=== PATIENT | female | born 1980 | race American Indian/Alaskan Native ===

== ENCOUNTER 2019-01-18 18:18 | Emergency (ER) | payer BC ==
--- NOTE | 2019-01-18 18:48 | Emergency Department Report ---
Blank Doc - Documentation Documentation: This is a 38-year-old female that presents with vaginal discharge and pelvic p ain. This initial assessment/diagnostic orders/clinical plan/treatment(s) is/are subject to change based on patient's health status, clinical progression and re- assessment by fellow clinical providers in the ED. Further treatment and workup at subsequent clinical providers discretion. Patient/guardians urged not to elope from the ED as their condition may be serious if not clinically assessed and managed. Initial orders include: 1- Patient sent to [facility] for further evaluation and treatment 2- UA 3- wet prep 4- pelvic exam to be done
[2019-01-18 19:24] LABS: Bilirubin,Urine NEG (Negative); Blood,Urine NEG (Negative); Color,Urine Yellow (Yellow); Mucus,Urine FEW /HPF; Protein,Urine <15 mg/dL mg/dL (Negative)
[2019-01-18 19:26] LABS: HCG Qualitative,Urine Negative (Negative)
[2019-01-18] MEDS ORDERED: ZOFRAN IV STA (22:52)
[2019-01-18] MEDS ORDERED: NACL 0.9% 1000 ML 1,000 ML IV ONE (22:52)
[2019-01-18] MEDS ORDERED: TORADOL IV STA (22:52)
[2019-01-18] MEDS ORDERED: TORADOL ONE ×2 (23:15→23:17)
[2019-01-18 23:17] LABS: Basophils # (Auto) 0.1 K/mm3 (0.0-0.1); Basophils % (Auto) 0.7 % (0.0-1.8); Eosinophils # (Auto) 0.1 K/mm3 (0.0-0.4); Eosinophils % (Auto) 1.1 % (0.0-4.3); Hematocrit 33.3 % (30.3-42.9); Hemoglobin 11.4 gm/dl (10.1-14.3); Lymphocytes # (Auto) 3.1 K/mm3 (1.2-5.4); Lymphocytes % (Auto) 30.7 % (13.4-35.0); Mean Corpuscular HGB Conc 34 % (30-34); Mean Corpuscular Volume 90 fl (79-97); Monocytes # (Auto) 0.5 K/mm3 (0.0-0.8); Monocytes % (Auto) 4.9 % (0.0-7.3); Platelet Count 275 K/mm3 (140-440); Red Blood Count 3.69 M/mm3 (3.65-5.03); Red Cell Distribution Width 14.4 % (13.2-15.2)
[2019-01-18 23:47] LABS: Alanine Aminotransferase 11 units/L (7-56); Albumin 3.6 g/dL (3.9-5); BUN/Creatinine Ratio 9; Blood Urea Nitrogen 8 mg/dL (7-17); Calcium 8.5 mg/dL (8.4-10.2); Hemolysis Index 6
--- NOTE | 2019-01-18 23:54 | Ultrasound Report ---
US pelvic complete, US transvaginal INDICATION / CLINICAL INFORMATION: rlq and suprapubic pain. COMPARISON: None available. FINDINGS: The uterus measures 9.2 cm and is slightly anteverted. Myometrial echogenicity is normal. Endometrial stripe thickness is 11 mm. The ovaries are demonstrated bilaterally with normal Doppler blood flow. The right ovary measures 2.5 cm x 2.5 cm with a 1.5 cm simple cyst. The left ovary measures 3.6 cm x 3.4 cm and has a 2 cm simple cyst. No fluid collections are identified in the cul-de-sac. IMPRESSION: 1. Small bilateral ovarian cysts. Signer Name: Nilay Lee MD Signed: 01/18/2019 11:50 PM Workstation Name: [id number]
--- NOTE | 2019-01-19 04:25 | Cat Scan Report ---
CT abdomen pelvis w con INDICATION / CLINICAL INFORMATION: Lower ABD Pain. TECHNIQUE: All CT scans at this location are performed using CT dose reduction for ALARA by means of automated e xposure control. COMPARISON: None available. FINDINGS: Limited lower thoracic images are normal. ABDOMEN: Gallbladder is normal in appearance Multiple small benign low-density areas are incidentally noted in the liver. The spleen, pancreas and kidneys are normal. No mesenteric or retroperitoneal adenopathy. No small bowel dilatation. Pelvis: The appendix is normal. No dependent fluid collections or inflammatory changes are seen in the pelvis. Bilateral ovarian cysts are identified No skeletal abnormality. IMPRESSION: 1. Small bilateral ovarian cysts. Signer Name: Nilay Lee MD Signed: 01/19/2019 4:21 AM Workstation Name: [id number]
--- NOTE | 2019-01-19 04:56 | Emergency Department Report ---
ED Abdominal Pain HPI - General Chief Complaint: Abdominal Pain Stated Complaint: SHARP PAINS/ABD SWELLING/SWEATS Time Seen by Provider: 01/18/19 18:46 Source: patient Mode of arrival: Ambulatory Limitations: No Limitations - History of Present Illness Initial Comments: 38-year-old -Thai female with past medical history of stomach ulcers, since emergency department complaining of abdominal pain to the right lower quadrant radiating across her suprapubic associated with some constipation and pressure. She felt feverish yesterday reports no vaginal bleeding, no hematuria, hematemesis or hematochezia. States she has some sweats off and on one of her abdomen evaluated. There is something wrong there is no palliative or provocative factors noted. MD Complaint: abdominal pain Location: RLQ Radiation: RUQ Migration to: RUQ Severity: mild, moderate Severity scale (0 -10): 2 Quality: dull Consistency: constant Improves With: nothing Worsens With: nothing Associated Symptoms: denies: diarrhea, constipation, hematemesis, hematochezia, hematuria, anorexia, syncope - Related Data Previous Rx's Medication Instructions Recorded Last Taken Type HYDROcodone/APAP 5-325 [[place] 1 each PO Q6HR PRN #60 tablet 09/24/13 Unknown Rx 5/325 mg] Ferrous Sulfate [Feosol 325mg] 325 mg PO TID #90 tablet 10/04/13 Unknown Rx HYDROcodone/APAP 5-325 [[place] 1 each PO Q6HR PRN #15 tablet 10/04/13 Unknown Rx 5/325 mg] Hyoscyamine Subl [Levsin Sl] 0.125 mg SL Q4HR PRN #16 tablet 01/19/19 Unknown Rx Ketorolac [Toradol] 10 mg PO Q6H PRN #14 tablet 01/19/19 Unknown Rx Omeprazole 40 mg PO DAILY #10 capsule. 01/19/19 Unknown Rx Allergies Allergy/AdvReac Type Severity Reaction Status Date / Time No Known Allergies Allergy Verified 09/24/13 07:06 ED Review of Systems ROS: Stated complaint: SHARP PAINS/ABD SWELLING/SWEATS Other details as noted in HPI Comment: All other systems reviewed and negative ED Past Medical Hx - Past Medical History Previous Medical History?: Yes Hx Hypertension: Yes Hx Diabetes: Yes (GESTATIONAL IN 2007) Hx GERD: Yes Additional medical history: sarcoidosis. stomach ulcers,fibrocystic breast, GI polyp,colonoscopy 07/2018 - Surgical History Past Surgical History?: Yes Additional Surgical History: C section, tubiligation,tummy tuck 2011 - Social History Smoking Status: Unknown if ever smoked Substance Use Type: None - Medications Home Medications: Home Medications Medication Instructions Recorded Confirmed Last Taken Type HYDROcodone/APAP 5-325 [[place] 1 each PO Q6HR PRN #60 tablet 09/24/13 10/04/13 Unknown Rx 5/325 mg] Ferrous Sulfate [Feosol 325mg] 325 mg PO TID #90 tablet 10/04/13 Unknown Rx HYDROcodone/APAP 5-325 [[place] 1 each PO Q6HR PRN #15 tablet 10/04/13 Unknown Rx 5/325 mg] Hyoscyamine Subl [Levsin Sl] 0.125 mg SL Q4HR PRN #16 tablet 01/19/19 Unknown Rx Ketorolac [Toradol] 10 mg PO Q6H PRN #14 tablet 01/19/19 Unknown Rx Omeprazole 40 mg PO DAILY #10 capsule. 01/19/19 Unknown Rx ED Physical Exam - General Limitations: No Limitations General appearance: alert, in no apparent distress - Head Head exam: Present: atraumatic, normocephalic - Eye Eye exam: Present: normal appearance, PERRL, EOMI Pupils: Present: normal accommodation - ENT ENT exam: Present: normal exam, normal orophraynx, mucous membranes moist - Neck Neck exam: Present: normal inspection - Respiratory Respiratory exam: Present: normal lung sounds bilaterally. Absent: respiratory distress - Cardiovascular Cardiovascular Exam: Present: regular rate, normal rhythm. Absent: systolic murmur, diastolic murmur, rubs, gallop - GI/Abdominal GI/Abdominal exam: Present: soft, tenderness, normal bowel sounds, other (neck: Soft, Tylenol, no Rovsing, no). Absent: hyperactive bowel sounds, hypoactive bowel sounds - Extremities Exam Extremities exam: Present: normal inspection, full ROM - Back Exam Back exam: Present: normal inspection. Absent: CVA tenderness (R), CVA tenderness (L) - Neurological Exam Neurological exam: Present: alert, oriented X3, CN II-XII intact, normal gait. Absent: abnormal gait, motor sensory deficit - Psychiatric Psychiatric exam: Present: normal affect, normal mood - Skin Skin exam: Present: warm, dry, intact, normal color. Absent: rash ED Course Vital Signs 01/18/19 01/18/19 01/19/19 18:30 23:50 02:06 Temperature 98.1 F 97.7 F Pulse Rate 88 80 Respiratory 18 16 14 Rate Blood Pressure 140/92 Blood Pressure 136/89 [Right] O2 Sat by Pulse 98 98 Oximetry ED Medical Decision Making - Lab Data Result diagrams: 01/18/19 23:02 01/18/19 23:02 - Medical Decision Making 38-year-old female has a history of gastric ulcers and follow-up with gastroenterology on February 04. She also has history of sarcoidosis as well complaining of recurrent abdominal pain and constipation. CT scan showed bilateral ovarian cyst which also was was found on ultrasound. Laboratory data did not show any infectious processes or any significant electrolyte deficiencies. Pain did improve during hospital stay as well. Last patient's is to follow up with [facility]'s days to resolve Critical care attestation.: If time is entered above; I have spent that time in minutes in the direct care of this critically ill patient, excluding procedure time. ED Disposition Clinical Impression: Ovarian cyst, Constipation, Abdominal pain Disposition: DC-01 TO HOME OR SELFCARE Is pt being admited?: No Does the pt Need Aspirin: No Condition: Stable Instructions: Abdominal Pain (ED) Prescriptions: Ketorolac [Toradol] 10 mg PO Q6H PRN #14 tablet PRN Reason: Pain Referrals: KYLE CURIEL MD [Primary Care Provider] - 3-5 Days
[2019-01-19 05:16] VITALS: BP 146/88
== END 2019-01-19 05:17 | disposition home or self-care (01) ==
LOC: ED 18:18
DX: N83.202 Unspecified ovarian cyst, left side (principal); N83.201 Unspecified ovarian cyst, right side; R10.31 Right lower quadrant pain; K59.00 Constipation, unspecified; I10 Essential (primary) hypertension; E11.9 Type 2 diabetes mellitus without complications; K21.9 Gastro-esophageal reflux disease without esophagitis; Z98.51 Tubal ligation status; Z79.899 Other long term (current) drug therapy
CPT/HCPCS: 36415; 74177; 76830; 76856; 80053; 81001; 81025; 83690; 85025; 96374; 96375; 99284; J1885; J2405; J7030; Q9967

== ENCOUNTER 2021-07-28 12:00 | Emergency (ER) | payer BC ==
[2021-07-28] MEDS ORDERED: SODIUM CHLORIDE 0.9% 1000 ML 1,000 ML IV ONE (12:19)
[2021-07-28] MEDS ORDERED: NITROGLYCERIN 0.4 MG TAB SUBL SL ONE (12:19)
[2021-07-28] MEDS ORDERED: ASPIRIN 81 MG TAB CHEW PO ONE (12:19)
--- NOTE | 2021-07-28 12:29 | Emergency Department Report ---
ED Chest Pain HPI - General Chief Complaint: Chest Pain Stated Complaint: RT SHOULDER PAIN/CHEST PAIN Time Seen by Provider: 07/28/21 12:12 Source: patient Mode of arrival: Ambulatory Limitations: No Limitations - History of Present Illness Initial Comments: Patient presents secondary to chest pain. She woke up this morning with right shoulder pain. The pain in the right shoulder was radiating into the right neck. It was worse when she would turn her head to the right. She had no pain turning her head to the left. The pain did radiate into the anterior aspect the right shoulder. Subsequent to that, she developed a precordial chest pain that seems to radiate into the right arm. She states that this was different to than the pain that woke her up this morning in the right shoulder. The chest pain was worse throughout the day. It is exertional. She states that she does not feel short of breath. Pain is not positional or pleuritic. There is no trauma. She has no fevers or chills but there is no cough or congestion. Has had no pain or swelling in the legs. She is never had chest pain like this before. - Related Data Previous Rx's Medication Instructions Recorded Last Taken Type HYDROcodone/APAP 5-325 [[place] 1 each PO Q6HR PRN #60 tablet 09/24/13 Unknown Rx 5/325 mg] Ferrous Sulfate [Feosol 325mg] 325 mg PO TID #90 tablet 10/04/13 Unknown Rx HYDROcodone/APAP 5-325 [[place] 1 each PO Q6HR PRN #15 tablet 10/04/13 Unknown Rx 5/325 mg] Hyoscyamine Subl [Levsin Sl] 0.125 mg SL Q4HR PRN #16 tablet 01/19/19 Unknown Rx Omeprazole 40 mg PO DAILY #10 capsule. 01/19/19 Unknown Rx Ibuprofen [Motrin] 600 mg PO Q8H PRN #30 tablet 07/28/21 Unknown Rx Metaxalone [Skelaxin] 800 mg PO TID #9 tablet 07/28/21 Unknown Rx Allergies Allergy/AdvReac Type Severity Reaction Status Date / Time No Known Allergies Allergy Verified 07/28/21 12:11 Heart Score - HEART Score History: Slightly suspicious EKG: Non-specific Age: < 45 Risk factors: No known risk factors Troponin: < normal limit HEART Score: 1 - EKG Read Time Time EKG Completed: 12:17 EKG Read Time: 12:21 ED Review of Systems ROS: Stated complaint: RT SHOULDER PAIN/CHEST PAIN Other details as noted in HPI Comment: All other systems reviewed and negative Constitutional: denies: fever Eyes: denies: eye pain ENT: denies: throat pain Respiratory: denies: cough Cardiovascular: as per HPI Endocrine: denies: unexplained weight loss Gastrointestinal: denies: abdominal pain Genitourinary: denies: dysuria Musculoskeletal: denies: back pain Skin: as per HPI. denies: rash Neurological: denies: headache Hematological/Lymphatic: denies: easy bruising ED Past Medical Hx - Past Medical History Hx Hypertension: Yes Hx Diabetes: Yes (GESTATIONAL IN 2007) Hx GERD: Yes Additional medical history: sarcoidosis. stomach ulcers,fibrocystic breast, GI polyp,colonoscopy 07/2018 - Surgical History Additional Surgical History: C section, tubiligation,tummy tuck 2011 - Family History Family history: hypertension - Social History Smoking Status: Unknown if ever smoked Substance Use Type: None - Medications Home Medications: Home Medications Medication Instructions Recorded Confirmed Last Taken Type HYDROcodone/APAP 5-325 [[place] 1 each PO Q6HR PRN #60 tablet 09/24/13 10/04/13 Unknown Rx 5/325 mg] Ferrous Sulfate [Feosol 325mg] 325 mg PO TID #90 tablet 10/04/13 Unknown Rx HYDROcodone/APAP 5-325 [[place] 1 each PO Q6HR PRN #15 tablet 10/04/13 Unknown Rx 5/325 mg] Hyoscyamine Subl [Levsin Sl] 0.125 mg SL Q4HR PRN #16 tablet 01/19/19 Unknown Rx Omeprazole 40 mg PO DAILY #10 capsule. 01/19/19 Unknown Rx Ibuprofen [Motrin] 600 mg PO Q8H PRN #30 tablet 07/28/21 Unknown Rx Metaxalone [Skelaxin] 800 mg PO TID #9 tablet 07/28/21 Unknown Rx ED Physical Exam - General Limitations: No Limitations, Other (Pulse ox noted and normal) General appearance: alert, in no apparent distress - Head Head exam: Present: atraumatic, normocephalic - Eye Eye exam: Present: normal appearance, EOMI. Absent: scleral icterus - ENT ENT exam: Present: mucous membranes dry, normal external ear exam - Neck Neck exam: Present: normal inspection, meningismus - Respiratory Respiratory exam: Present: normal lung sounds bilaterally. Absent: respiratory distress - Cardiovascular Cardiovascular Exam: Present: regular rate, normal rhythm - GI/Abdominal GI/Abdominal exam: Present: soft. Absent: distended, tenderness - Extremities Exam Extremities exam: Present: normal capillary refill. Absent: calf tenderness - Back Exam Back exam: Absent: CVA tenderness (R), CVA tenderness (L) - Neurological Exam Neurological exam: Present: alert, oriented X3, CN II-XII intact, normal gait. Absent: motor sensory deficit - Psychiatric Psychiatric exam: Present: normal affect, normal mood - Skin Skin exam: Present: warm, dry ED Course Vital Signs 07/28/21 12:10 Temperature 98.6 F Pulse Rate 97 H Respiratory 20 Rate Blood Pressure 141/104 [Right] O2 Sat by Pulse 100 Oximetry - Reevaluation(s) Reevaluation #1: 07/28/21 12:27 EKG been noted. IV and labs ordered. Old records reviewed. Reevaluation #2: 07/28/21 14:23 Patient was discharged PADILLA score - Padilla Score Age > 65: (0) No Aspirin use within the Past 7 Days: (0) No 3 or more CAD Risk Factors: (0) No 2 or more Angina events in past 24 hrs: (0) No Known CAD with more than 50% Stenosis: (0) No Elevated Cardiac Markers: (0) No ST Deviation Greater than 0.5mm: (0) No PADILLA Score: 0 ED Medical Decision Making - Lab Data Result diagrams: 07/28/21 12:44 07/28/21 12:44 Rhythm strip: Normal sinus rhythm without ectopy. Monitor observe 10 seconds. - EKG Data -: EKG Interpreted by Nd - EKG Data 07/28/21 12:28 1217-EKG shows normal sinus rhythm at 90. Intervals are normal including a QRS of 78 and a QT corrected of 436. Patient has no ST elevation to suggest STEMI. There is no ST depression suggestive of ischemia. There is isolated T wave inversion in 3. Patient has generalized T wave flattening in limb and precordial leads. There is no prior EKG. 07/28/21 12:29 - Radiology Data Radiology results: report reviewed - Medical Decision Making Patient presented with right shoulder pain and chest pain. He seemed to be 2 different issues. Patient has musculoskeletal injury and strain to the right shoulder. This can be managed as an outpatient. Etiology for the precordial pain is not known. There is no evidence of STEMI, pneumonia, pneumothorax, wide mediastinum, or pulse deficit. I do not believe this represents aortic dissection. She had no risk factor for PE. She is not hypoxic or tachycardic. Wells score was low. She was treated symptomatically and referred for outpatient evaluation and follow-up. Critical Care Time: No Critical care attestation.: If time is entered above; I have spent that time in minutes in the direct care of this critically ill patient, excluding procedure time. ED Disposition Clinical Impression: Precordial chest pain, Cervical muscle pain Disposition: HOME / SELF CARE / HOMELESS Is pt being admited?: No Condition: Stable Instructions: Neck Exercises, Nonspecific Chest Pain, Adult Additional Instructions: Use ice on your neck for the next couple of days. Then switch to heat. Drink plenty water. Return for problems. Follow-up with your regular doctor or the referral physician for recheck and further evaluation. Prescriptions: Ibuprofen [Motrin] 600 mg PO Q8H PRN #30 tablet PRN Reason: Pain Metaxalone [Skelaxin] 800 mg PO TID #9 tablet Referrals: PRIMARY CAREMD [Primary Care Provider] - 3-5 Days KUMAR WARD MD [Staff Physician] - 3-5 Days
[2021-07-28 13:15] LABS: Basophils # (Auto) 0.1 K/mm3 (0.0-0.1); Basophils % (Auto) 0.8 % (0.0-1.8); Eosinophils % (Auto) 0.7 % (0.0-4.3); Hematocrit 43.2 % (30.3-42.9); Hemoglobin 13.9 gm/dl (10.1-14.3); Lymphocytes # (Auto) 3.2 K/mm3 (1.2-5.4); Lymphocytes % (Auto) 45.4 % (13.4-35.0); Mean Corpuscular HGB Conc 32 % (30-34); Mean Corpuscular Volume 92 fl (79-97); Monocytes # (Auto) 0.4 K/mm3 (0.0-0.8); Monocytes % (Auto) 5.7 % (0.0-7.3); Platelet Count 231 K/mm3 (140-440); Red Blood Count 4.69 M/mm3 (3.65-5.03); Red Cell Distribution Width 13.9 % (13.2-15.2)
--- NOTE | 2021-07-28 13:32 | XRay Report ---
CHEST 2 VIEWS INDICATION / CLINICAL INFORMATION: cp. COMPARISON: None available. FINDINGS: SUPPORT DEVICES: None. HEART / MEDIASTINUM: No significant abnormality. LUNGS / PLEURA: No significant pulmonary or pleural abnormality. No pneumothorax. ADDITIONAL FINDINGS: No significant additional findings. IMPRESSION: 1. No acute findings. Signer Name: Bud Whitney MD Signed: 07/28/2021 1:28 PM Workstation Name: [id number]
[2021-07-28 13:42] LABS: BUN/Creatinine Ratio 14; Blood Urea Nitrogen 11 mg/dL (7-17); Calcium 9.5 mg/dL (8.4-10.2); Hemolysis Index 7
[2021-07-28 15:02] VITALS: BP 135/86
== END 2021-07-28 15:01 | disposition home or self-care (01) ==
LOC: ED 12:00
DX: R07.2 Precordial pain (principal); M54.2 Cervicalgia; I10 Essential (primary) hypertension; E11.8 Type 2 diabetes mellitus with unspecified complications; K21.9 Gastro-esophageal reflux disease without esophagitis; Z79.899 Other long term (current) drug therapy; Z98.890 Other specified postprocedural states
CPT/HCPCS: 36415; 71046; 80048; 84484; 85025; 93005; 96360; 99284; J7030; Q0162